=== PATIENT | male | born 2000 | race African-American/Black ===

== ENCOUNTER 2023-04-10 07:30 | Inpatient (IN) | payer MEDICAID, OTHER ==
[~2023-04-10] VITALS: Ht 167.6 cm; Wt 70.5 kg
[2023-04-10] MEDS ORDERED: HALOPERIDOL LACTATE 5 MG/ML VIAL IM ONE ×2 (08:00→21:15)
[2023-04-10] MEDS ORDERED: DiphenhydrAMINE HCL 50 MG/ML VIAL IM ONE ×2 (08:00→21:15)
[2023-04-10] MEDS ORDERED: LORazepam 2 MG/ML VIAL IM ONE ×2 (08:00→21:15)
[2023-04-10 08:12] LABS: BASOPHILS % (AUTO) 0.3 % (0.0-2.0); EOSINOPHILS % (AUTO) 1.2 % (1.0-6.0); HEMOGLOBIN 13.5 g/dL (13.5-17.5); LYMPHOCYTES # (AUTO) 1.8 K/uL (1.0-4.8); LYMPHOCYTES % (AUTO) 37.9 % (22.0-44.0); MEAN CORPUSCULAR HEMOGLOBIN 30.3 pg (26.0-34.0); MEAN CORPUSCULAR HGB CONC 33.8 G/dL (31.0-37.0); MEAN CORPUSCULAR VOLUME 90 fL (80-100); MONOCYTES # (AUTO) 0.4 K/uL (0.1-1.0); MONOCYTES % (AUTO) 9.1 % (2.0-9.0); NEUTROPHILS # (AUTO) 2.5 K/uL (1.8-7.7); NEUTROPHILS % (AUTO) 51.5 % (40.0-70.0); PLATELET COUNT (AUTO) 179 K/uL (150-450); RED BLOOD CELL COUNT(AUTO) 4.46 MIL/uL (4.50-5.90); RED CELL DISTRIBUTION WIDTH 15.3 % (11.5-14.5); WHITE BLOOD COUNT (AUTO) 4.8 K/uL (4.5-11.0)
[2023-04-10 08:21] LABS: ANION GAP 4 mmol/L (8-16); CARBON DIOXIDE 31 mmol/L (22-29); CHLORIDE 102 mmol/L (98-107); CREATININE 0.91 mg/dL (0.60-1.30); GLOMERULAR FILTR. RATE CALC > 60 mL/min (>60); GLUCOSE,RANDOM 92 mg/dL (70-110); POTASSIUM 3.7 mmol/L (3.5-5.1); SODIUM SERUM 137 mmol/L (136-145); UREA NITROGEN, BLOOD 15 mg/dL (7-18)
[2023-04-10] MEDS ORDERED: QUET25TA PO (08:23)
[2023-04-10] MEDS ORDERED: BENZ1TAB84 PO (08:23)
[2023-04-10] MEDS ORDERED: CHLO100T42 PO ×2 (08:23)
[2023-04-10] MEDS ORDERED: ESCI-8 PO (08:26)
[2023-04-10] MEDS ORDERED: ESOM20CA31 PO (08:26)
[2023-04-10 08:27] LABS: ALANINE AMINOTRANSFERASE 24 U/L (12-78); ALBUMIN 3.7 g/dL (3.4-5.0); ALKALINE PHOSPHATASE 99 U/L (46-116); ASPARTATE AMINOTRANSFERASE 26 U/L (15-37); BILIRUBIN,TOTAL 0.4 mg/dL (0.1-1.0); TOTAL PROTEIN, SERUM 7.5 g/dL (6.4-8.2)
[2023-04-10 09:05] LABS: ALCOHOL, BLOOD (SERUM) < 3 mg/dL (0-10)
[2023-04-10 10:49] LABS: COVID AG,FIA SOURCE NASAL SWAB
[2023-04-10 11:12] LABS: SARS-COV2 (COVID) ANTIGEN,FIA Negative (Negative)
[2023-04-10 16:00] VITALS: BP 116/80; PULSE 90
[2023-04-10] MEDS: LORazepam 2 MG TABLET PO PRN (20:06)
[2023-04-10] MEDS: HALOPERIDOL 5 MG TABLET PO PRN (20:06)
[2023-04-10 20:35] VITALS: RESP 18
[2023-04-10] MEDS ORDERED: INFLUENZA VIRUS VACCINE QVS 2023-24 (6MO+)/PF 60 MCG/0.5 ML SYRINGE IM. ONE (22:45)
[2023-04-11] MEDS ORDERED: ONDANSETRON HCL 4 MG TABLET PO PRN (06:00)
[2023-04-11] MEDS ORDERED: ALBUTEROL SULFATE HFA 90 MCG/PUFF 8 GM INHALER IH PRN (06:00)
[2023-04-11] MEDS ORDERED: MAGNESIUM HYDROXIDE SUSPENSION 30 ML UDCUP PO PRN (06:00)
[2023-04-11] MEDS ORDERED: IBUPROFEN 600 MG TABLET PO PRN (06:00)
[2023-04-11] MEDS ORDERED: PETROLATUM,WHITE 28 GM JELLY TP PRN (06:00)
[2023-04-11] MEDS ORDERED: BACITRACIN 28 GM OINTMENT TP PRN (06:00)
[2023-04-11] MEDS ORDERED: MAG HYDROX/ALUMINUM HYD/SIMETH ES 30 ML SUSPENSION UDCUP PO PRN (06:00)
[2023-04-11] MEDS ORDERED: ACETAMINOPHEN 325 MG TABLET PO PRN (06:00)
[2023-04-11] MEDS ORDERED: DOCUSATE SODIUM 100 MG CAPSULE PO PRN (06:00)
[2023-04-11] MEDS ORDERED: BENZOCAINE/MENTHOL LOZENGE PO PRN (06:00)
[2023-04-11] MEDS ORDERED: CloNIDine HCL 0.1 MG TABLET PO PRN (06:00)
[2023-04-11] MEDS ORDERED: OMEPRAZOLE 20 MG CAPSULE PO PRN (06:00)
[2023-04-11] MEDS ORDERED: LOPERAMIDE HCL 2 MG CAPSULE PO PRN (06:00)
[2023-04-11 08:29] VITALS: RESP 19
[2023-04-11] MEDS: HALOPERIDOL 5 MG TABLET PO PRN (09:11)
[2023-04-11] MEDS: LORazepam 2 MG TABLET PO PRN ×2 (09:11→21:35)
[2023-04-11] MEDS: GuanFACINE HCL 1 MG TABLET PO SCH (11:31)
[2023-04-11] MEDS: ChlorproMAZINE HCL 100 MG TABLET PO SCH ×2 (13:48→17:00)
[2023-04-11] MEDS: LITHIUM CARBONATE 300 MG CAPSULE PO SCH ×2 (17:00→18:08)
[2023-04-11] MEDS: ZOLPIDEM TARTRATE 10 MG TABLET PO PRN (21:35)
[2023-04-11 21:37] VITALS: RESP 18
[2023-04-12] MEDS: LORazepam 2 MG TABLET PO PRN ×2 (06:55→22:58)
[2023-04-12] MEDS: ChlorproMAZINE HCL 50 MG TABLET PO PRN ×2 (06:55→09:02)
[2023-04-12] MEDS: GuanFACINE HCL 1 MG TABLET PO SCH (09:01)
[2023-04-12] MEDS: LITHIUM CARBONATE 300 MG CAPSULE PO SCH ×2 (09:01→17:27)
[2023-04-12] MEDS: DIVALPROEX SODIUM 500 MG DR TABLET PO SCH ×2 (09:04→17:27)
[2023-04-12 09:27] VITALS: RESP 19
[2023-04-12] MEDS: ChlorproMAZINE HCL 100 MG TABLET PO SCH ×3 (09:35→17:27)
[2023-04-12 21:20] VITALS: RESP 18
[2023-04-12] MEDS: ZOLPIDEM TARTRATE 10 MG TABLET PO PRN (22:58)
[2023-04-13] MEDS: GuanFACINE HCL 1 MG TABLET PO SCH (08:27)
[2023-04-13] MEDS: DIVALPROEX SODIUM 500 MG DR TABLET PO SCH ×2 (08:27→16:51)
[2023-04-13] MEDS: ChlorproMAZINE HCL 100 MG TABLET PO SCH ×3 (08:28→16:51)
[2023-04-13] MEDS: LITHIUM CARBONATE 300 MG CAPSULE PO SCH ×2 (09:01→16:51)
[2023-04-13 09:13] VITALS: TEMP 97.6
[2023-04-13] MEDS: ChlorproMAZINE HCL 50 MG TABLET PO PRN (16:51)
[2023-04-13 21:03] VITALS: RESP 18
[2023-04-14] MEDS: HALOPERIDOL 5 MG TABLET PO PRN (04:52)
[2023-04-14] MEDS: LORazepam 2 MG TABLET PO PRN ×2 (04:52→17:27)
[2023-04-14] MEDS: ChlorproMAZINE HCL 100 MG TABLET PO SCH ×3 (09:00→17:27)
[2023-04-14] MEDS: DIVALPROEX SODIUM 500 MG DR TABLET PO SCH ×2 (09:00→17:29)
[2023-04-14] MEDS: GuanFACINE HCL 1 MG TABLET PO SCH (09:00)
[2023-04-14] MEDS: LITHIUM CARBONATE 300 MG CAPSULE PO SCH ×2 (09:00→17:27)
[2023-04-14 20:43] VITALS: RESP 18
[2023-04-15] MEDS: GuanFACINE HCL 1 MG TABLET PO SCH (07:51)
[2023-04-15] MEDS: ChlorproMAZINE HCL 100 MG TABLET PO SCH ×3 (07:51→16:45)
[2023-04-15] MEDS: LITHIUM CARBONATE 300 MG CAPSULE PO SCH ×2 (07:53→16:46)
[2023-04-15] MEDS: LORazepam 2 MG TABLET PO PRN ×3 (07:53→14:35)
[2023-04-15] MEDS: DIVALPROEX SODIUM 500 MG DR TABLET PO SCH ×2 (07:53→16:45)
[2023-04-15 20:55] VITALS: RESP 17; TEMP 97.2
[2023-04-16 08:06] VITALS: RESP 18; TEMP 97.5
[2023-04-16] MEDS: ChlorproMAZINE HCL 100 MG TABLET PO SCH ×2 (08:23→13:13)
[2023-04-16] MEDS: GuanFACINE HCL 1 MG TABLET PO SCH (08:23)
[2023-04-16] MEDS: DIVALPROEX SODIUM 500 MG DR TABLET PO SCH (08:24)
[2023-04-16] MEDS: LITHIUM CARBONATE 300 MG CAPSULE PO SCH (08:24)
[2023-04-16] MEDS ORDERED: LITH300C3 PO (10:15)
[2023-04-16] MEDS ORDERED: DIVA-112 PO (10:15)
[2023-04-16] MEDS ORDERED: GUAN1TAB20 PO (10:17)
== END 2023-04-16 16:09 | disposition home or self-care (01) | DRG 753 ==
LOC: EMS 07:31 → 3EC 19:09
PROVIDERS: ADMIT Psychiatry & Neurology Psychiatry; ATTEND Psychiatry & Neurology Psychiatry
DX: F31.9 Bipolar disorder, unspecified (principal); F25.9 Schizoaffective disorder, unspecified; F84.0 Autistic disorder; Z20.822 Contact with and (suspected) exposure to COVID-19; F41.9 Anxiety disorder, unspecified; K59.00 Constipation, unspecified; G47.00 Insomnia, unspecified; Z78.1 Physical restraint status
CPT/HCPCS: 80053; 85025; 99285; G0480; J1200; J1630; J2060

== ENCOUNTER 2023-04-25 04:20 | Inpatient (IN) | payer MEDICAID, OTHER ==
[~2023-04-25] VITALS: Ht 167.6 cm; Wt 68.1 kg
[~2023-04-25 04:20] MED LIST: CHLO100T42 PO; DIVA-112 PO; GUAN1TAB20 PO; LITH300C3 PO
[2023-04-25 05:03] VITALS: BP 116/76
[2023-04-25] MEDS ORDERED: DiphenhydrAMINE HCL 50 MG/ML VIAL IM ONE (05:15)
[2023-04-25] MEDS ORDERED: LORazepam 2 MG/ML VIAL IM ONE (05:15)
[2023-04-25] MEDS ORDERED: HALOPERIDOL LACTATE 5 MG/ML VIAL IM ONE (05:15)
[2023-04-25 06:14] LABS: COVID AG,FIA SOURCE NASAL SWAB
[2023-04-25 06:16] LABS: BASOPHILS % (AUTO) 0.3 % (0.0-2.0); EOSINOPHILS % (AUTO) 0.5 % (1.0-6.0); HEMATOCRIT 37.2 % (41-53); HEMOGLOBIN 12.7 g/dL (13.5-17.5); LYMPHOCYTES % (AUTO) 24.3 % (22.0-44.0); MEAN CORPUSCULAR HEMOGLOBIN 30.5 pg (26.0-34.0); MEAN CORPUSCULAR HGB CONC 34.2 G/dL (31.0-37.0); MEAN CORPUSCULAR VOLUME 89 fL (80-100); MONOCYTES # (AUTO) 0.8 K/uL (0.1-1.0); MONOCYTES % (AUTO) 10.1 % (2.0-9.0); NEUTROPHILS # (AUTO) 5.2 K/uL (1.8-7.7); NEUTROPHILS % (AUTO) 64.8 % (40.0-70.0); PLATELET COUNT (AUTO) 157 K/uL (150-450); RED BLOOD CELL COUNT(AUTO) 4.17 MIL/uL (4.50-5.90); RED CELL DISTRIBUTION WIDTH 15.5 % (11.5-14.5); WHITE BLOOD COUNT (AUTO) 8.1 K/uL (4.5-11.0)
[2023-04-25 06:28] LABS: ANION GAP 3 mmol/L (8-16); CALCIUM, TOTAL 8.8 mg/dL (8.8-10.5); CARBON DIOXIDE 32 mmol/L (22-29); CHLORIDE 103 mmol/L (98-107); CREATININE 0.86 mg/dL (0.60-1.30); GLOMERULAR FILTR. RATE CALC > 60 mL/min (>60); GLUCOSE,RANDOM 90 mg/dL (70-110); POTASSIUM 3.7 mmol/L (3.5-5.1); SODIUM SERUM 138 mmol/L (136-145); UREA NITROGEN, BLOOD 10 mg/dL (7-18)
[2023-04-25 06:30] LABS: ALANINE AMINOTRANSFERASE 26 U/L (12-78); ALBUMIN 3.2 g/dL (3.4-5.0); ALKALINE PHOSPHATASE 90 U/L (46-116); ASPARTATE AMINOTRANSFERASE 45 U/L (15-37); BILIRUBIN,TOTAL 0.2 mg/dL (0.1-1.0); TOTAL PROTEIN, SERUM 7.2 g/dL (6.4-8.2); VALPROIC ACID 55 mcg/mL (50-100)
[2023-04-25 06:52] LABS: LITHIUM 0.37 mmol/L (0.60-1.20)
[2023-04-25 06:56] LABS: ALCOHOL, BLOOD (SERUM) < 3 mg/dL (0-10)
[2023-04-25 07:16] VITALS: TEMP 98.8
[2023-04-25 08:00] LABS: SARS-COV2 (COVID) ANTIGEN,FIA Positive (Negative)
[2023-04-25] MEDS ORDERED: ACETAMINOPHEN 325 MG TABLET PO PRN (08:15)
[2023-04-25] MEDS ORDERED: MAGNESIUM HYDROXIDE SUSPENSION 30 ML UDCUP PO PRN (08:15)
[2023-04-25] MEDS ORDERED: FLUP10TA28 PO (08:30)
[2023-04-25] MEDS ORDERED: DIVA-112 PO (08:30)
[2023-04-25] MEDS ORDERED: FAMO20 PO (08:30)
[2023-04-25] MEDS ORDERED: LEVO125 PO (08:30)
[2023-04-25] MEDS ORDERED: AMLO-257 PO (08:30)
[2023-04-25] MEDS ORDERED: DOCU-412 PO (08:30)
[2023-04-25] MEDS ORDERED: ASPI81TA87 PO (08:30)
[2023-04-25] MEDS ORDERED: METF-1211 PO (08:30)
[2023-04-25] MEDS ORDERED: LORazepam 2 MG/ML VIAL IVP PRN (18:15)
[2023-04-25 19:40] VITALS: PULSE 102
[2023-04-25] MEDS: LORazepam 2 MG/ML VIAL IM PRN (21:38)
[2023-04-26] MEDS: LORazepam 2 MG/ML VIAL IM PRN (09:28)
[2023-04-26 17:50] VITALS: RESP 18
[2023-04-26] MEDS ORDERED: DIVALPROEX SODIUM 500 MG DR TABLET PO SCH (21:00)
[2023-04-26] MEDS ORDERED: FluPHENAZine HCL 10 MG TABLET PO SCH (21:00)
== END 2023-04-26 17:40 | DRG 137 ==
LOC: EMS 04:21 → 6S 14:33
PROVIDERS: ADMIT Internal Medicine; ATTEND Internal Medicine
DX: U07.1 COVID-19 (principal); F31.9 Bipolar disorder, unspecified; H91.3 Deaf nonspeaking, not elsewhere classified; F84.0 Autistic disorder
CPT/HCPCS: 80053; 80164; 80178; 85025; 99285; G0480; J1200; J1630; J2060

== ENCOUNTER 2023-04-26 14:21 | Inpatient (IN) | payer MEDICAID ==
[~2023-04-26] VITALS: Ht 167.6 cm; Wt 68.1 kg
[~2023-04-26 14:21] MED LIST changes: +AMLO-257 PO; +ASPI81TA87 PO; -CHLO100T42 PO; +DOCU-412 PO; +FAMO20 PO; +FLUP10TA28 PO; -GUAN1TAB20 PO; +LEVO125 PO; -LITH300C3 PO; +METF-1211 PO
[2023-04-26] MEDS ORDERED: ZOLPIDEM TARTRATE 10 MG TABLET PO PRN (16:30)
[2023-04-26 18:39] VITALS: RESP 16; TEMP 96
[2023-04-26] MEDS ORDERED: INFLUENZA VIRUS VACCINE QVS 2023-24 (6MO+)/PF 60 MCG/0.5 ML SYRINGE IM. ONE (19:00)
[2023-04-26] MEDS: HALOPERIDOL 5 MG TABLET PO PRN (21:00)
[2023-04-26] MEDS: LORazepam 2 MG TABLET PO PRN (21:00)
[2023-04-26 22:52] VITALS: RESP 18
[2023-04-27 08:29] VITALS: RESP 18
[2023-04-27] MEDS ORDERED: PETROLATUM,WHITE 28 GM JELLY TP PRN (12:15)
[2023-04-27] MEDS ORDERED: ACETAMINOPHEN 325 MG TABLET PO PRN (12:15)
[2023-04-27] MEDS ORDERED: ONDANSETRON HCL 4 MG TABLET PO PRN (12:15)
[2023-04-27] MEDS ORDERED: OMEPRAZOLE 20 MG CAPSULE PO PRN (12:15)
[2023-04-27] MEDS ORDERED: BENZOCAINE/MENTHOL LOZENGE PO PRN (12:15)
[2023-04-27] MEDS ORDERED: MAG HYDROX/ALUMINUM HYD/SIMETH ES 30 ML SUSPENSION UDCUP PO PRN (12:15)
[2023-04-27] MEDS ORDERED: LOPERAMIDE HCL 2 MG CAPSULE PO PRN (12:15)
[2023-04-27] MEDS ORDERED: CloNIDine HCL 0.1 MG TABLET PO PRN (12:15)
[2023-04-27] MEDS ORDERED: BACITRACIN 28 GM OINTMENT TP PRN (12:15)
[2023-04-27] MEDS ORDERED: MAGNESIUM HYDROXIDE SUSPENSION 30 ML UDCUP PO PRN (12:15)
[2023-04-27] MEDS ORDERED: DOCUSATE SODIUM 100 MG CAPSULE PO PRN (12:15)
[2023-04-27] MEDS ORDERED: IBUPROFEN 600 MG TABLET PO PRN (12:15)
[2023-04-27] MEDS ORDERED: ALBUTEROL SULFATE HFA 90 MCG/PUFF 8 GM INHALER IH PRN (12:15)
[2023-04-27] MEDS: LORazepam 2 MG TABLET PO PRN (14:09)
[2023-04-27] MEDS: HALOPERIDOL 5 MG TABLET PO PRN (14:09)
[2023-04-27] MEDS: FAMOTIDINE 20 MG TABLET PO SCH (16:28)
[2023-04-27] MEDS: DIVALPROEX SODIUM 500 MG DR TABLET PO SCH (16:28)
[2023-04-27] MEDS ORDERED: FluPHENAZine HCL 10 MG TABLET PO SCH (21:00)
[2023-04-27] MEDS: FluPHENAZine HCL 5 MG TABLET PO SCH (21:39)
[2023-04-27 23:59] VITALS: RESP 18
[2023-04-28] MEDS: LEVOTHYROXINE SODIUM 125 MCG TABLET PO SCH (06:27)
[2023-04-28 08:16] LABS: COVID AG,FIA SOURCE NASAL SWAB
[2023-04-28 08:59] LABS: SARS-COV2 (COVID) ANTIGEN,FIA Negative (Negative)
[2023-04-28] MEDS: FAMOTIDINE 20 MG TABLET PO SCH ×2 (09:29→16:11)
[2023-04-28] MEDS: CHOLECALCIFEROL (VIT D3) 1,000 UNITS [25 MCG] TABLET PO SCH (09:29)
[2023-04-28] MEDS: DIVALPROEX SODIUM 500 MG DR TABLET PO SCH ×2 (09:29→16:11)
[2023-04-28] MEDS: AmLODIPine BESYLATE 5 MG TABLET PO SCH (09:30)
[2023-04-28] MEDS: LORazepam 2 MG TABLET PO PRN (09:55)
[2023-04-28 16:00] VITALS: RESP 18
[2023-04-28] MEDS: ESOMEPRAZOLE MAG TRIHYDRATE 20 MG CAPSULE PO SCH (16:11)
[2023-04-28] MEDS: FluPHENAZine HCL 5 MG TABLET PO SCH (22:19)
[2023-04-29 01:00] VITALS: RESP 19; TEMP 97.8
[2023-04-29] MEDS: LEVOTHYROXINE SODIUM 125 MCG TABLET PO SCH (06:30)
[2023-04-29] MEDS: ESOMEPRAZOLE MAG TRIHYDRATE 20 MG CAPSULE PO SCH ×2 (06:58→17:38)
[2023-04-29] MEDS: DIVALPROEX SODIUM 500 MG DR TABLET PO SCH ×2 (10:19→17:39)
[2023-04-29] MEDS: FAMOTIDINE 20 MG TABLET PO SCH ×2 (10:19→17:39)
[2023-04-29] MEDS: AmLODIPine BESYLATE 5 MG TABLET PO SCH (10:19)
[2023-04-29] MEDS: CHOLECALCIFEROL (VIT D3) 1,000 UNITS [25 MCG] TABLET PO SCH (10:19)
[2023-04-29 16:45] VITALS: BP 120/70; PULSE 85; RESP 18; TEMP 98
[2023-04-29 20:38] VITALS: RESP 18
[2023-04-29] MEDS: FluPHENAZine HCL 5 MG TABLET PO SCH (21:10)
[2023-04-30] MEDS: LEVOTHYROXINE SODIUM 125 MCG TABLET PO SCH (06:47)
[2023-04-30] MEDS: ESOMEPRAZOLE MAG TRIHYDRATE 20 MG CAPSULE PO SCH ×2 (06:48→17:52)
[2023-04-30] MEDS: AmLODIPine BESYLATE 5 MG TABLET PO SCH (07:54)
[2023-04-30] MEDS: LORazepam 2 MG TABLET PO PRN ×2 (07:54→20:59)
[2023-04-30] MEDS: HALOPERIDOL 5 MG TABLET PO PRN ×2 (07:54→20:59)
[2023-04-30] MEDS: CHOLECALCIFEROL (VIT D3) 1,000 UNITS [25 MCG] TABLET PO SCH (07:54)
[2023-04-30] MEDS: DIVALPROEX SODIUM 500 MG DR TABLET PO SCH ×2 (07:54→17:52)
[2023-04-30] MEDS: FAMOTIDINE 20 MG TABLET PO SCH ×2 (07:54→17:52)
[2023-04-30 08:38] VITALS: RESP 18
[2023-04-30] MEDS: ChlorproMAZINE HCL 50 MG TABLET PO SCH (17:52)
[2023-04-30] MEDS: TraZODone HCL 50 MG TABLET PO SCH (17:52)
[2023-04-30] MEDS: FluPHENAZine HCL 5 MG TABLET PO SCH (20:59)
[2023-04-30 22:03] VITALS: RESP 18; TEMP 98.1
[2023-05-01] MEDS: ESOMEPRAZOLE MAG TRIHYDRATE 20 MG CAPSULE PO SCH ×2 (06:55→17:00)
[2023-05-01] MEDS: LEVOTHYROXINE SODIUM 125 MCG TABLET PO SCH (06:55)
[2023-05-01] MEDS: CHOLECALCIFEROL (VIT D3) 1,000 UNITS [25 MCG] TABLET PO SCH (08:03)
[2023-05-01] MEDS: TraZODone HCL 50 MG TABLET PO SCH ×2 (08:03→17:00)
[2023-05-01] MEDS: DIVALPROEX SODIUM 500 MG DR TABLET PO SCH ×2 (08:03→17:00)
[2023-05-01] MEDS: AmLODIPine BESYLATE 5 MG TABLET PO SCH (08:03)
[2023-05-01] MEDS: FAMOTIDINE 20 MG TABLET PO SCH ×2 (08:03→17:00)
[2023-05-01] MEDS: HALOPERIDOL 5 MG TABLET PO PRN (08:03)
[2023-05-01] MEDS: LORazepam 2 MG TABLET PO PRN (08:03)
[2023-05-01] MEDS: ChlorproMAZINE HCL 50 MG TABLET PO SCH ×3 (08:04→17:00)
[2023-05-01 08:18] VITALS: RESP 18
[2023-05-01] MEDS ORDERED: CHLO50TA61 PO (12:11)
[2023-05-01] MEDS ORDERED: TRAZ-252 PO (12:11)
[2023-05-01] MEDS ORDERED: ESOM20CA31 PO (12:47)
[2023-05-01] MEDS ORDERED: CHOL25TA4 PO (12:54)
== END 2023-05-01 16:00 | disposition home or self-care (01) | DRG 750 ==
LOC: 3EI 17:20 → 3EC 04-28 17:15
PROVIDERS: ADMIT Psychiatry & Neurology Psychiatry; ATTEND Psychiatry & Neurology Psychiatry
DX: F25.9 Schizoaffective disorder, unspecified (principal); F79 Unspecified intellectual disabilities; E03.9 Hypothyroidism, unspecified; E66.9 Obesity, unspecified; E78.5 Hyperlipidemia, unspecified; F84.0 Autistic disorder; I10 Essential (primary) hypertension; K21.9 Gastro-esophageal reflux disease without esophagitis; K59.00 Constipation, unspecified; Z68.24 Body mass index [BMI] 24.0-24.9, adult; Z79.82 Long term (current) use of aspirin; Z79.899 Other long term (current) drug therapy; Z79.84 Long term (current) use of oral hypoglycemic drugs
CPT/HCPCS: 87081; Z7610

== ENCOUNTER 2023-05-05 18:04 | Inpatient (IN) | payer MEDICAID, OTHER ==
[~2023-05-05] VITALS: Ht 167.6 cm; Wt 67.2 kg
[~2023-05-05 18:04] MED LIST changes: -ASPI81TA87 PO; +CHLO50TA61 PO; +CHOL25TA4 PO; -DOCU-412 PO; +ESOM20CA31 PO; -METF-1211 PO; +TRAZ-252 PO
[2023-05-05 21:17] LABS: COVID AG,FIA SOURCE NASAL SWAB
[2023-05-05 21:39] LABS: SARS-COV2 (COVID) ANTIGEN,FIA Negative (Negative)
[2023-05-05 21:51] LABS: BASOPHILS % (AUTO) 0.5 % (0.0-2.0); EOSINOPHILS % (AUTO) 0.8 % (1.0-6.0); HEMATOCRIT 36.3 % (41-53); HEMOGLOBIN 12.2 g/dL (13.5-17.5); LYMPHOCYTES # (AUTO) 2.8 K/uL (1.0-4.8); LYMPHOCYTES % (AUTO) 42.3 % (22.0-44.0); MEAN CORPUSCULAR HEMOGLOBIN 30.1 pg (26.0-34.0); MEAN CORPUSCULAR HGB CONC 33.7 G/dL (31.0-37.0); MEAN CORPUSCULAR VOLUME 89 fL (80-100); MONOCYTES # (AUTO) 0.7 K/uL (0.1-1.0); MONOCYTES % (AUTO) 10.1 % (2.0-9.0); NEUTROPHILS # (AUTO) 3.1 K/uL (1.8-7.7); NEUTROPHILS % (AUTO) 46.3 % (40.0-70.0); PLATELET COUNT (AUTO) 243 K/uL (150-450); RED BLOOD CELL COUNT(AUTO) 4.06 MIL/uL (4.50-5.90); WHITE BLOOD COUNT (AUTO) 6.7 K/uL (4.5-11.0)
[2023-05-05 21:58] LABS: ANION GAP 3 mmol/L (8-16); CALCIUM, TOTAL 8.6 mg/dL (8.8-10.5); CARBON DIOXIDE 32 mmol/L (22-29); CHLORIDE 103 mmol/L (98-107); CREATININE 0.71 mg/dL (0.60-1.30); GLOMERULAR FILTR. RATE CALC > 60 mL/min (>60); GLUCOSE,RANDOM 132 mg/dL (70-110); POTASSIUM 3.6 mmol/L (3.5-5.1); SODIUM SERUM 138 mmol/L (136-145); UREA NITROGEN, BLOOD 14 mg/dL (7-18)
[2023-05-05 22:04] LABS: ALANINE AMINOTRANSFERASE 15 U/L (12-78); ALBUMIN 3.1 g/dL (3.4-5.0); ALKALINE PHOSPHATASE 84 U/L (46-116); ASPARTATE AMINOTRANSFERASE 12 U/L (15-37); BILIRUBIN,TOTAL 0.1 mg/dL (0.1-1.0); TOTAL PROTEIN, SERUM 6.5 g/dL (6.4-8.2)
[2023-05-05 22:08] LABS: ALCOHOL, BLOOD (SERUM) < 3 mg/dL (0-10)
[2023-05-06] MEDS ORDERED: DiphenhydrAMINE HCL 50 MG/ML VIAL IM ONE (06:30)
[2023-05-06] MEDS ORDERED: LORazepam 2 MG/ML VIAL IM ONE (06:30)
[2023-05-06] MEDS ORDERED: HALOPERIDOL LACTATE 5 MG/ML VIAL IM ONE (06:30)
[2023-05-07] MEDS: LORazepam 1 MG TABLET PO PRN (08:00)
[2023-05-07] MEDS: HALOPERIDOL 5 MG TABLET PO PRN (08:00)
[2023-05-08 02:00] VITALS: BP 142/83; PULSE 77; RESP 18; TEMP 97.6; O2SAT 98
[2023-05-08] MEDS: ZOLPIDEM TARTRATE 10 MG TABLET PO PRN (02:02)
[2023-05-08] MEDS: LORazepam 1 MG TABLET PO PRN ×2 (05:01→12:32)
[2023-05-08] MEDS: HALOPERIDOL 5 MG TABLET PO PRN ×2 (05:02→12:32)
[2023-05-08] MEDS ORDERED: INFLUENZA VIRUS VACCINE QVS 2023-24 (6MO+)/PF 60 MCG/0.5 ML SYRINGE IM. ONE (06:30)
[2023-05-08 08:21] VITALS: BP 123/67; PULSE 95; RESP 18; TEMP 98.1; O2SAT 97
[2023-05-08] MEDS: ChlorproMAZINE HCL 50 MG TABLET PO SCH ×2 (13:00→17:42)
[2023-05-08] MEDS ORDERED: MAG HYDROX/ALUMINUM HYD/SIMETH ES 30 ML SUSPENSION UDCUP PO PRN (15:00)
[2023-05-08] MEDS ORDERED: CloNIDine HCL 0.1 MG TABLET PO PRN (15:00)
[2023-05-08] MEDS ORDERED: DOCUSATE SODIUM 100 MG CAPSULE PO PRN (15:00)
[2023-05-08] MEDS ORDERED: LOPERAMIDE HCL 2 MG CAPSULE PO PRN (15:00)
[2023-05-08] MEDS ORDERED: ALBUTEROL SULFATE HFA 90 MCG/PUFF 8 GM INHALER IH PRN (15:00)
[2023-05-08] MEDS ORDERED: ONDANSETRON HCL 4 MG TABLET PO PRN (15:00)
[2023-05-08] MEDS ORDERED: OMEPRAZOLE 20 MG CAPSULE PO PRN (15:00)
[2023-05-08] MEDS ORDERED: IBUPROFEN 600 MG TABLET PO PRN (15:00)
[2023-05-08] MEDS ORDERED: BACITRACIN 28 GM OINTMENT TP PRN (15:00)
[2023-05-08] MEDS ORDERED: MAGNESIUM HYDROXIDE SUSPENSION 30 ML UDCUP PO PRN (15:00)
[2023-05-08] MEDS ORDERED: PETROLATUM,WHITE 28 GM JELLY TP PRN (15:00)
[2023-05-08] MEDS ORDERED: ACETAMINOPHEN 325 MG TABLET PO PRN (15:00)
[2023-05-08] MEDS ORDERED: BENZOCAINE/MENTHOL LOZENGE PO PRN (15:00)
[2023-05-08] MEDS ORDERED: FAMOTIDINE 20 MG TABLET PO SCH (17:00)
[2023-05-08] MEDS: TraZODone HCL 50 MG TABLET PO SCH (17:43)
[2023-05-08] MEDS: DIVALPROEX SODIUM 500 MG DR TABLET PO SCH (17:43)
[2023-05-09 05:00] VITALS: BP 129/84; PULSE 94; RESP 18; TEMP 97.9
[2023-05-09] MEDS: HALOPERIDOL 5 MG TABLET PO PRN ×2 (05:23→16:16)
[2023-05-09] MEDS: LORazepam 1 MG TABLET PO PRN ×3 (05:23→16:17)
[2023-05-09] MEDS: ESOMEPRAZOLE MAG TRIHYDRATE 20 MG CAPSULE PO SCH ×2 (06:31→16:17)
[2023-05-09] MEDS: LEVOTHYROXINE SODIUM 125 MCG TABLET PO SCH (06:31)
[2023-05-09] MEDS: TraZODone HCL 50 MG TABLET PO SCH ×2 (08:25→16:16)
[2023-05-09] MEDS: ChlorproMAZINE HCL 50 MG TABLET PO SCH ×2 (08:25→13:20)
[2023-05-09] MEDS: CHOLECALCIFEROL (VIT D3) 1,000 UNITS [25 MCG] TABLET PO SCH (08:25)
[2023-05-09] MEDS: DIVALPROEX SODIUM 500 MG DR TABLET PO SCH ×2 (08:25→16:17)
[2023-05-09] MEDS: ChlorproMAZINE HCL 50 MG TABLET PO PRN (08:27)
[2023-05-09] MEDS: AmLODIPine BESYLATE 5 MG TABLET PO SCH (08:28)
[2023-05-09] MEDS: ChlorproMAZINE HCL 100 MG TABLET PO SCH (16:16)
[2023-05-09 22:32] VITALS: BP 118/72; PULSE 85; RESP 16; TEMP 97.5
[2023-05-10] MEDS: ESOMEPRAZOLE MAG TRIHYDRATE 20 MG CAPSULE PO SCH ×2 (06:32→16:53)
[2023-05-10] MEDS: LEVOTHYROXINE SODIUM 125 MCG TABLET PO SCH (06:32)
[2023-05-10 08:04] VITALS: BP 120/81; PULSE 82; RESP 17; TEMP 98; O2SAT 98
[2023-05-10] MEDS: AmLODIPine BESYLATE 5 MG TABLET PO SCH (08:07)
[2023-05-10] MEDS: ChlorproMAZINE HCL 100 MG TABLET PO SCH ×3 (08:07→16:53)
[2023-05-10] MEDS: CHOLECALCIFEROL (VIT D3) 1,000 UNITS [25 MCG] TABLET PO SCH (08:07)
[2023-05-10] MEDS: DIVALPROEX SODIUM 500 MG DR TABLET PO SCH ×2 (08:08→16:54)
[2023-05-10] MEDS: LORazepam 1 MG TABLET PO PRN ×2 (08:08→16:55)
[2023-05-10] MEDS: TraZODone HCL 50 MG TABLET PO SCH ×2 (08:08→16:54)
[2023-05-10] MEDS: HALOPERIDOL 5 MG TABLET PO PRN (16:55)
[2023-05-11 03:14] VITALS: RESP 18; TEMP 97.9
[2023-05-11] MEDS: LEVOTHYROXINE SODIUM 125 MCG TABLET PO SCH (06:24)
[2023-05-11] MEDS: ESOMEPRAZOLE MAG TRIHYDRATE 20 MG CAPSULE PO SCH ×2 (06:24→16:55)
[2023-05-11] MEDS: LORazepam 1 MG TABLET PO PRN ×3 (06:24→16:55)
[2023-05-11] MEDS: ChlorproMAZINE HCL 50 MG TABLET PO PRN ×3 (06:24→16:54)
[2023-05-11 08:09] VITALS: BP 115/76; PULSE 98; RESP 18; TEMP 98.1; O2SAT 96
[2023-05-11] MEDS: ChlorproMAZINE HCL 100 MG TABLET PO SCH ×3 (08:26→16:54)
[2023-05-11] MEDS: TraZODone HCL 50 MG TABLET PO SCH ×2 (08:26→16:55)
[2023-05-11] MEDS: CHOLECALCIFEROL (VIT D3) 1,000 UNITS [25 MCG] TABLET PO SCH (08:26)
[2023-05-11] MEDS: AmLODIPine BESYLATE 5 MG TABLET PO SCH (08:27)
[2023-05-11] MEDS: DIVALPROEX SODIUM 500 MG DR TABLET PO SCH ×2 (08:27→16:54)
[2023-05-11] MEDS: HALOPERIDOL 5 MG TABLET PO PRN ×2 (11:41→16:54)
[2023-05-11 20:00] VITALS: BP 116/70; PULSE 82; RESP 18; TEMP 97.9; O2SAT 97
[2023-05-12] MEDS: ESOMEPRAZOLE MAG TRIHYDRATE 20 MG CAPSULE PO SCH ×2 (06:28→16:13)
[2023-05-12] MEDS: LEVOTHYROXINE SODIUM 125 MCG TABLET PO SCH (06:28)
[2023-05-12] MEDS: ChlorproMAZINE HCL 100 MG TABLET PO SCH ×3 (08:24→16:13)
[2023-05-12] MEDS: DIVALPROEX SODIUM 500 MG DR TABLET PO SCH ×2 (08:24→16:13)
[2023-05-12] MEDS: AmLODIPine BESYLATE 5 MG TABLET PO SCH (08:24)
[2023-05-12] MEDS: TraZODone HCL 50 MG TABLET PO SCH ×2 (08:24→16:13)
[2023-05-12] MEDS: HALOPERIDOL 5 MG TABLET PO PRN (08:25)
[2023-05-12] MEDS: LORazepam 1 MG TABLET PO PRN (08:25)
[2023-05-12] MEDS: CHOLECALCIFEROL (VIT D3) 1,000 UNITS [25 MCG] TABLET PO SCH (08:26)
[2023-05-12 09:39] VITALS: BP 108/67; PULSE 80; RESP 18; TEMP 97.8; O2SAT 97
[2023-05-13 00:44] VITALS: RESP 18
[2023-05-13] MEDS: LORazepam 1 MG TABLET PO PRN ×4 (05:50→16:48)
[2023-05-13] MEDS: ChlorproMAZINE HCL 50 MG TABLET PO PRN ×2 (05:50→16:48)
[2023-05-13] MEDS: LEVOTHYROXINE SODIUM 125 MCG TABLET PO SCH (05:51)
[2023-05-13] MEDS: ESOMEPRAZOLE MAG TRIHYDRATE 20 MG CAPSULE PO SCH ×2 (05:52→16:47)
[2023-05-13] MEDS: HALOPERIDOL 5 MG TABLET PO PRN ×3 (07:31→16:48)
[2023-05-13] MEDS: AmLODIPine BESYLATE 5 MG TABLET PO SCH (08:07)
[2023-05-13] MEDS: ChlorproMAZINE HCL 100 MG TABLET PO SCH ×3 (08:07→16:48)
[2023-05-13] MEDS: DIVALPROEX SODIUM 500 MG DR TABLET PO SCH ×2 (08:07→16:48)
[2023-05-13] MEDS: TraZODone HCL 50 MG TABLET PO SCH ×2 (08:07→16:48)
[2023-05-13] MEDS: CHOLECALCIFEROL (VIT D3) 1,000 UNITS [25 MCG] TABLET PO SCH (08:07)
[2023-05-13 08:19] VITALS: BP 127/64; PULSE 60; RESP 18; TEMP 97.7; O2SAT 95
[2023-05-13 22:41] VITALS: RESP 18; TEMP 98.2
[2023-05-14] MEDS: ChlorproMAZINE HCL 50 MG TABLET PO PRN ×3 (01:04→17:04)
[2023-05-14] MEDS: LORazepam 1 MG TABLET PO PRN ×4 (01:04→17:04)
[2023-05-14] MEDS: ZOLPIDEM TARTRATE 10 MG TABLET PO PRN (01:04)
[2023-05-14] MEDS: HALOPERIDOL 5 MG TABLET PO PRN ×2 (05:51→17:04)
[2023-05-14] MEDS: LEVOTHYROXINE SODIUM 125 MCG TABLET PO SCH (06:28)
[2023-05-14] MEDS: ESOMEPRAZOLE MAG TRIHYDRATE 20 MG CAPSULE PO SCH ×2 (06:28→17:04)
[2023-05-14] MEDS: TraZODone HCL 50 MG TABLET PO SCH ×2 (08:26→17:04)
[2023-05-14] MEDS: CHOLECALCIFEROL (VIT D3) 1,000 UNITS [25 MCG] TABLET PO SCH (08:26)
[2023-05-14] MEDS: DIVALPROEX SODIUM 500 MG DR TABLET PO SCH ×2 (08:26→17:04)
[2023-05-14] MEDS: ChlorproMAZINE HCL 100 MG TABLET PO SCH ×3 (08:26→17:04)
[2023-05-14] MEDS: AmLODIPine BESYLATE 5 MG TABLET PO SCH (08:26)
[2023-05-14 20:08] VITALS: BP 102/62; PULSE 91; RESP 16; TEMP 97.8; O2SAT 100
[2023-05-15] MEDS: LEVOTHYROXINE SODIUM 125 MCG TABLET PO SCH (06:22)
[2023-05-15] MEDS: ESOMEPRAZOLE MAG TRIHYDRATE 20 MG CAPSULE PO SCH ×2 (06:24→16:52)
[2023-05-15 08:17] VITALS: BP 110/68; PULSE 88; RESP 17; TEMP 98; O2SAT 98
[2023-05-15] MEDS: DIVALPROEX SODIUM 500 MG DR TABLET PO SCH ×2 (08:18→16:52)
[2023-05-15] MEDS: LORazepam 1 MG TABLET PO PRN ×3 (08:18→16:52)
[2023-05-15] MEDS: AmLODIPine BESYLATE 5 MG TABLET PO SCH (08:18)
[2023-05-15] MEDS: TraZODone HCL 50 MG TABLET PO SCH ×2 (08:18→16:52)
[2023-05-15] MEDS: ChlorproMAZINE HCL 100 MG TABLET PO SCH ×3 (08:18→16:52)
[2023-05-15] MEDS: CHOLECALCIFEROL (VIT D3) 1,000 UNITS [25 MCG] TABLET PO SCH (08:18)
[2023-05-15] MEDS: HALOPERIDOL 5 MG TABLET PO PRN ×2 (08:18→12:25)
[2023-05-15 08:39] VITALS: BP 136/65; PULSE 92; RESP 18; TEMP 97.7; O2SAT 98
[2023-05-15 23:06] VITALS: BP 106/56; PULSE 82; RESP 16; TEMP 97.6; O2SAT 96
[2023-05-16] MEDS: LEVOTHYROXINE SODIUM 125 MCG TABLET PO SCH (06:29)
[2023-05-16] MEDS: ESOMEPRAZOLE MAG TRIHYDRATE 20 MG CAPSULE PO SCH ×2 (06:31→17:03)
[2023-05-16] MEDS: DIVALPROEX SODIUM 500 MG DR TABLET PO SCH ×2 (08:31→17:03)
[2023-05-16] MEDS: ChlorproMAZINE HCL 100 MG TABLET PO SCH ×3 (08:31→17:04)
[2023-05-16] MEDS: CHOLECALCIFEROL (VIT D3) 1,000 UNITS [25 MCG] TABLET PO SCH (08:31)
[2023-05-16] MEDS: TraZODone HCL 50 MG TABLET PO SCH ×2 (08:31→17:04)
[2023-05-16] MEDS: AmLODIPine BESYLATE 5 MG TABLET PO SCH (08:31)
[2023-05-16] MEDS: HALOPERIDOL 5 MG TABLET PO PRN ×2 (13:57→18:19)
[2023-05-16] MEDS: LORazepam 1 MG TABLET PO PRN ×2 (13:58→18:19)
[2023-05-16] MEDS: ChlorproMAZINE HCL 50 MG TABLET PO PRN (17:04)
[2023-05-16 20:38] VITALS: BP 121/72; PULSE 91; RESP 18; TEMP 98.1
[2023-05-17] MEDS: HALOPERIDOL 5 MG TABLET PO PRN ×2 (03:00→08:25)
[2023-05-17] MEDS: ChlorproMAZINE HCL 50 MG TABLET PO PRN ×2 (03:00→08:26)
[2023-05-17] MEDS: ESOMEPRAZOLE MAG TRIHYDRATE 20 MG CAPSULE PO SCH ×2 (06:30→16:48)
[2023-05-17] MEDS: LEVOTHYROXINE SODIUM 125 MCG TABLET PO SCH (06:30)
[2023-05-17] MEDS: AmLODIPine BESYLATE 5 MG TABLET PO SCH (08:25)
[2023-05-17] MEDS: DIVALPROEX SODIUM 500 MG DR TABLET PO SCH ×2 (08:25→16:48)
[2023-05-17] MEDS: ChlorproMAZINE HCL 100 MG TABLET PO SCH ×3 (08:26→16:48)
[2023-05-17] MEDS: TraZODone HCL 50 MG TABLET PO SCH ×2 (08:26→16:48)
[2023-05-17] MEDS: CHOLECALCIFEROL (VIT D3) 1,000 UNITS [25 MCG] TABLET PO SCH (08:26)
[2023-05-17] MEDS: LORazepam 1 MG TABLET PO PRN (08:26)
[2023-05-17 08:27] VITALS: BP 128/71; PULSE 88; RESP 17; TEMP 98; O2SAT 98
[2023-05-17 20:09] VITALS: BP 120/70; PULSE 90; RESP 18; TEMP 97.9
[2023-05-18] MEDS: LEVOTHYROXINE SODIUM 125 MCG TABLET PO SCH (06:45)
[2023-05-18] MEDS: ESOMEPRAZOLE MAG TRIHYDRATE 20 MG CAPSULE PO SCH ×2 (06:46→16:06)
[2023-05-18 08:22] VITALS: RESP 18
[2023-05-18] MEDS: LORazepam 1 MG TABLET PO PRN (08:26)
[2023-05-18] MEDS: DIVALPROEX SODIUM 500 MG DR TABLET PO SCH ×2 (08:26→16:06)
[2023-05-18] MEDS: AmLODIPine BESYLATE 5 MG TABLET PO SCH (08:26)
[2023-05-18] MEDS: TraZODone HCL 50 MG TABLET PO SCH ×2 (08:26→16:06)
[2023-05-18] MEDS: ChlorproMAZINE HCL 100 MG TABLET PO SCH ×3 (08:26→16:06)
[2023-05-18] MEDS: CHOLECALCIFEROL (VIT D3) 1,000 UNITS [25 MCG] TABLET PO SCH (09:29)
[2023-05-18 23:07] VITALS: BP 102/58; PULSE 78; RESP 18; TEMP 98; O2SAT 98
[2023-05-19] MEDS: ESOMEPRAZOLE MAG TRIHYDRATE 20 MG CAPSULE PO SCH ×2 (07:01→16:13)
[2023-05-19] MEDS: HALOPERIDOL 5 MG TABLET PO PRN (07:01)
[2023-05-19] MEDS: LEVOTHYROXINE SODIUM 125 MCG TABLET PO SCH (07:01)
[2023-05-19] MEDS: ChlorproMAZINE HCL 50 MG TABLET PO PRN (07:02)
[2023-05-19] MEDS: AmLODIPine BESYLATE 5 MG TABLET PO SCH (08:12)
[2023-05-19] MEDS: DIVALPROEX SODIUM 500 MG DR TABLET PO SCH ×2 (08:12→16:13)
[2023-05-19] MEDS: TraZODone HCL 50 MG TABLET PO SCH ×2 (08:12→16:13)
[2023-05-19] MEDS: CHOLECALCIFEROL (VIT D3) 1,000 UNITS [25 MCG] TABLET PO SCH (08:12)
[2023-05-19] MEDS: ChlorproMAZINE HCL 100 MG TABLET PO SCH ×3 (08:12→16:13)
[2023-05-19 08:28] VITALS: BP 104/63; PULSE 100; RESP 18; TEMP 97.8; O2SAT 96
[2023-05-19] MEDS: LORazepam 1 MG TABLET PO PRN (16:13)
[2023-05-19 20:15] VITALS: BP 110/64; PULSE 98; RESP 20; TEMP 97.8; O2SAT 97
[2023-05-20] MEDS: ESOMEPRAZOLE MAG TRIHYDRATE 20 MG CAPSULE PO SCH ×2 (06:41→18:50)
[2023-05-20] MEDS: HALOPERIDOL 5 MG TABLET PO PRN ×2 (06:41→20:18)
[2023-05-20] MEDS: ChlorproMAZINE HCL 50 MG TABLET PO PRN ×2 (06:41→20:18)
[2023-05-20] MEDS: LEVOTHYROXINE SODIUM 125 MCG TABLET PO SCH (06:41)
[2023-05-20] MEDS: LORazepam 1 MG TABLET PO PRN ×2 (08:54→20:18)
[2023-05-20] MEDS: CHOLECALCIFEROL (VIT D3) 1,000 UNITS [25 MCG] TABLET PO SCH (08:55)
[2023-05-20] MEDS: ChlorproMAZINE HCL 100 MG TABLET PO SCH ×3 (08:55→18:49)
[2023-05-20] MEDS: DIVALPROEX SODIUM 500 MG DR TABLET PO SCH ×2 (08:55→18:50)
[2023-05-20] MEDS: AmLODIPine BESYLATE 5 MG TABLET PO SCH (08:55)
[2023-05-20] MEDS: TraZODone HCL 50 MG TABLET PO SCH ×2 (08:55→18:50)
[2023-05-20 09:50] VITALS: BP 101/72; PULSE 97; RESP 20; TEMP 97.1; O2SAT 99
[2023-05-20 20:15] VITALS: BP 124/70; PULSE 96; RESP 18; TEMP 97.9; O2SAT 98
[2023-05-20] MEDS: ZOLPIDEM TARTRATE 10 MG TABLET PO PRN (21:58)
[2023-05-21] MEDS: ChlorproMAZINE HCL 50 MG TABLET PO PRN (05:10)
[2023-05-21] MEDS: HALOPERIDOL 5 MG TABLET PO PRN ×2 (05:10→14:00)
[2023-05-21] MEDS: LEVOTHYROXINE SODIUM 125 MCG TABLET PO SCH (06:04)
[2023-05-21] MEDS: ESOMEPRAZOLE MAG TRIHYDRATE 20 MG CAPSULE PO SCH ×2 (06:04→16:38)
[2023-05-21 08:00] VITALS: BP 120/82; PULSE 88; RESP 17; TEMP 98; O2SAT 98
[2023-05-21] MEDS: AmLODIPine BESYLATE 5 MG TABLET PO SCH (09:58)
[2023-05-21] MEDS: CHOLECALCIFEROL (VIT D3) 1,000 UNITS [25 MCG] TABLET PO SCH (09:58)
[2023-05-21] MEDS: TraZODone HCL 50 MG TABLET PO SCH ×2 (09:58→16:38)
[2023-05-21] MEDS: DIVALPROEX SODIUM 500 MG DR TABLET PO SCH ×2 (09:58→16:38)
[2023-05-21] MEDS: ChlorproMAZINE HCL 100 MG TABLET PO SCH ×3 (09:58→16:39)
[2023-05-21] MEDS: LORazepam 1 MG TABLET PO PRN (14:00)
[2023-05-21] MEDS ORDERED: DiphenhydrAMINE HCL 50 MG/ML VIAL IM ONE (14:45)
[2023-05-21] MEDS ORDERED: ChlorproMAZINE HCL 50 MG/2 ML AMP IM ONE (14:45)
[2023-05-21] MEDS ORDERED: LORazepam 2 MG/ML VIAL IM ONE (14:45)
[2023-05-21] MEDS ORDERED: ChlorproMAZINE HCL 50 MG/2 ML AMP ONE (14:47)
[2023-05-21] MEDS ORDERED: LORazepam 2 MG/ML VIAL ONE (14:48)
[2023-05-21] MEDS ORDERED: DiphenhydrAMINE HCL 50 MG/ML VIAL ONE (14:49)
[2023-05-21 16:04] VITALS: BP 118/70; PULSE 91; RESP 16; TEMP 98; O2SAT 99
[2023-05-21] MEDS: GuanFACINE HCL 1 MG TABLET PO SCH (16:56)
[2023-05-21 22:55] VITALS: BP 108/68; PULSE 82; RESP 18; TEMP 97.5; O2SAT 99
[2023-05-22] MEDS: ESOMEPRAZOLE MAG TRIHYDRATE 20 MG CAPSULE PO SCH ×2 (06:32→16:38)
[2023-05-22] MEDS: LEVOTHYROXINE SODIUM 125 MCG TABLET PO SCH (06:32)
[2023-05-22] MEDS: GuanFACINE HCL 1 MG TABLET PO SCH ×2 (08:32→17:16)
[2023-05-22] MEDS: TraZODone HCL 50 MG TABLET PO SCH ×2 (08:32→17:16)
[2023-05-22] MEDS: ChlorproMAZINE HCL 100 MG TABLET PO SCH ×3 (08:32→17:15)
[2023-05-22] MEDS: AmLODIPine BESYLATE 5 MG TABLET PO SCH (08:32)
[2023-05-22] MEDS: ChlorproMAZINE HCL 50 MG TABLET PO PRN (08:32)
[2023-05-22] MEDS: DIVALPROEX SODIUM 500 MG DR TABLET PO SCH ×3 (08:33→17:15)
[2023-05-22] MEDS: CHOLECALCIFEROL (VIT D3) 1,000 UNITS [25 MCG] TABLET PO SCH (08:33)
[2023-05-22] MEDS: HALOPERIDOL 5 MG TABLET PO PRN ×2 (08:33→19:51)
[2023-05-22] MEDS: LORazepam 1 MG TABLET PO PRN ×2 (08:33→19:51)
[2023-05-22 14:11] VITALS: BP 113/72; PULSE 100; RESP 18; TEMP 97.6; O2SAT 98
[2023-05-23 00:35] VITALS: BP 106/62; PULSE 78; RESP 16; TEMP 98; O2SAT 97
[2023-05-23] MEDS: ESOMEPRAZOLE MAG TRIHYDRATE 20 MG CAPSULE PO SCH ×2 (06:28→16:50)
[2023-05-23] MEDS: LEVOTHYROXINE SODIUM 125 MCG TABLET PO SCH (06:28)
[2023-05-23] MEDS: GuanFACINE HCL 1 MG TABLET PO SCH ×2 (08:27→16:51)
[2023-05-23] MEDS: CHOLECALCIFEROL (VIT D3) 1,000 UNITS [25 MCG] TABLET PO SCH (08:28)
[2023-05-23] MEDS: ChlorproMAZINE HCL 100 MG TABLET PO SCH ×3 (08:28→16:51)
[2023-05-23] MEDS: DIVALPROEX SODIUM 500 MG DR TABLET PO SCH ×3 (08:28→16:51)
[2023-05-23] MEDS: AmLODIPine BESYLATE 5 MG TABLET PO SCH (08:28)
[2023-05-23] MEDS: TraZODone HCL 50 MG TABLET PO SCH ×2 (08:28→16:51)
[2023-05-23] MEDS: ChlorproMAZINE HCL 50 MG TABLET PO PRN ×2 (08:28→16:51)
[2023-05-23] MEDS: LORazepam 1 MG TABLET PO PRN ×2 (08:30→16:51)
[2023-05-23] MEDS: HALOPERIDOL 5 MG TABLET PO PRN ×2 (08:30→16:51)
[2023-05-23 20:17] VITALS: RESP 18
[2023-05-24] MEDS: LEVOTHYROXINE SODIUM 125 MCG TABLET PO SCH (06:22)
[2023-05-24] MEDS: ESOMEPRAZOLE MAG TRIHYDRATE 20 MG CAPSULE PO SCH ×2 (06:22→16:57)
[2023-05-24] MEDS: ChlorproMAZINE HCL 100 MG TABLET PO SCH ×3 (08:36→16:57)
[2023-05-24] MEDS: TraZODone HCL 50 MG TABLET PO SCH ×2 (08:37→16:57)
[2023-05-24] MEDS: LORazepam 1 MG TABLET PO PRN ×2 (08:37→16:58)
[2023-05-24] MEDS: GuanFACINE HCL 1 MG TABLET PO SCH ×2 (08:37→16:58)
[2023-05-24] MEDS: AmLODIPine BESYLATE 5 MG TABLET PO SCH (08:37)
[2023-05-24] MEDS: HALOPERIDOL 5 MG TABLET PO PRN ×2 (08:37→16:57)
[2023-05-24] MEDS: CHOLECALCIFEROL (VIT D3) 1,000 UNITS [25 MCG] TABLET PO SCH (08:37)
[2023-05-24] MEDS: DIVALPROEX SODIUM 500 MG DR TABLET PO SCH ×3 (08:37→16:57)
[2023-05-24] MEDS: ChlorproMAZINE HCL 50 MG TABLET PO PRN ×2 (08:37→16:57)
[2023-05-24 09:31] VITALS: BP 138/97; PULSE 81; RESP 17; TEMP 97.2; O2SAT 100
[2023-05-25] MEDS: LEVOTHYROXINE SODIUM 125 MCG TABLET PO SCH (06:23)
[2023-05-25] MEDS: ESOMEPRAZOLE MAG TRIHYDRATE 20 MG CAPSULE PO SCH ×2 (06:23→16:37)
[2023-05-25] MEDS: CHOLECALCIFEROL (VIT D3) 1,000 UNITS [25 MCG] TABLET PO SCH (08:27)
[2023-05-25] MEDS: TraZODone HCL 50 MG TABLET PO SCH ×2 (08:27→16:37)
[2023-05-25] MEDS: DIVALPROEX SODIUM 500 MG DR TABLET PO SCH ×3 (08:27→16:37)
[2023-05-25] MEDS: GuanFACINE HCL 1 MG TABLET PO SCH ×2 (08:27→16:40)
[2023-05-25] MEDS: ChlorproMAZINE HCL 100 MG TABLET PO SCH ×3 (08:27→16:37)
[2023-05-25] MEDS: HALOPERIDOL 5 MG TABLET PO PRN ×2 (08:27→13:34)
[2023-05-25] MEDS: LORazepam 1 MG TABLET PO PRN ×2 (08:27→13:34)
[2023-05-25] MEDS: AmLODIPine BESYLATE 5 MG TABLET PO SCH (08:27)
[2023-05-26 00:10] VITALS: RESP 17; TEMP 97.5; O2SAT 98
[2023-05-26] MEDS: ESOMEPRAZOLE MAG TRIHYDRATE 20 MG CAPSULE PO SCH ×2 (06:05→16:46)
[2023-05-26] MEDS: LEVOTHYROXINE SODIUM 125 MCG TABLET PO SCH (06:05)
[2023-05-26] MEDS: CHOLECALCIFEROL (VIT D3) 1,000 UNITS [25 MCG] TABLET PO SCH (08:18)
[2023-05-26] MEDS: TraZODone HCL 50 MG TABLET PO SCH ×2 (08:18→16:55)
[2023-05-26] MEDS: AmLODIPine BESYLATE 5 MG TABLET PO SCH (08:18)
[2023-05-26] MEDS: DIVALPROEX SODIUM 500 MG DR TABLET PO SCH ×3 (08:18→16:55)
[2023-05-26] MEDS: ChlorproMAZINE HCL 100 MG TABLET PO SCH ×3 (08:18→16:55)
[2023-05-26] MEDS: GuanFACINE HCL 1 MG TABLET PO SCH ×2 (08:21→16:55)
[2023-05-26 08:49] VITALS: BP 138/87; PULSE 106; RESP 20; TEMP 98.4; O2SAT 99
[2023-05-26] MEDS: HALOPERIDOL 5 MG TABLET PO PRN ×2 (12:36→16:55)
[2023-05-26] MEDS: LORazepam 1 MG TABLET PO PRN ×2 (12:36→16:55)
[2023-05-26 23:42] VITALS: RESP 18
[2023-05-27] MEDS: ESOMEPRAZOLE MAG TRIHYDRATE 20 MG CAPSULE PO SCH ×2 (06:34→17:24)
[2023-05-27] MEDS: LEVOTHYROXINE SODIUM 125 MCG TABLET PO SCH (06:34)
[2023-05-27] MEDS: TraZODone HCL 50 MG TABLET PO SCH ×2 (08:23→17:23)
[2023-05-27] MEDS: ChlorproMAZINE HCL 50 MG TABLET PO PRN ×2 (08:23→17:23)
[2023-05-27] MEDS: HALOPERIDOL 5 MG TABLET PO PRN ×2 (08:23→17:23)
[2023-05-27] MEDS: ChlorproMAZINE HCL 100 MG TABLET PO SCH ×3 (08:23→17:27)
[2023-05-27] MEDS: CHOLECALCIFEROL (VIT D3) 1,000 UNITS [25 MCG] TABLET PO SCH (08:23)
[2023-05-27] MEDS: LORazepam 1 MG TABLET PO PRN ×2 (08:23→17:23)
[2023-05-27] MEDS: GuanFACINE HCL 1 MG TABLET PO SCH ×2 (08:23→17:23)
[2023-05-27] MEDS: DIVALPROEX SODIUM 500 MG DR TABLET PO SCH ×3 (08:23→17:23)
[2023-05-27] MEDS: AmLODIPine BESYLATE 5 MG TABLET PO SCH (08:23)
[2023-05-27 10:05] VITALS: BP 134/67; PULSE 76; RESP 18; TEMP 98.4; O2SAT 97
[2023-05-27 22:46] VITALS: RESP 18
[2023-05-28] MEDS: ESOMEPRAZOLE MAG TRIHYDRATE 20 MG CAPSULE PO SCH ×2 (06:38→17:16)
[2023-05-28] MEDS: LEVOTHYROXINE SODIUM 125 MCG TABLET PO SCH (06:38)
[2023-05-28] MEDS: GuanFACINE HCL 1 MG TABLET PO SCH ×2 (08:13→17:17)
[2023-05-28] MEDS: LORazepam 1 MG TABLET PO PRN ×2 (08:13→17:17)
[2023-05-28] MEDS: ChlorproMAZINE HCL 50 MG TABLET PO PRN (08:13)
[2023-05-28] MEDS: CHOLECALCIFEROL (VIT D3) 1,000 UNITS [25 MCG] TABLET PO SCH (08:13)
[2023-05-28] MEDS: TraZODone HCL 50 MG TABLET PO SCH ×2 (08:13→17:17)
[2023-05-28] MEDS: DIVALPROEX SODIUM 500 MG DR TABLET PO SCH ×3 (08:13→17:17)
[2023-05-28] MEDS: AmLODIPine BESYLATE 5 MG TABLET PO SCH (08:13)
[2023-05-28] MEDS: ChlorproMAZINE HCL 100 MG TABLET PO SCH ×3 (08:13→17:17)
[2023-05-28 09:21] VITALS: BP 111/68; PULSE 79; RESP 20; TEMP 98; O2SAT 98
[2023-05-28] MEDS: HALOPERIDOL 5 MG TABLET PO PRN (17:17)
[2023-05-28 20:13] VITALS: BP 118/64; PULSE 80; RESP 18; TEMP 97.8; O2SAT 98
[2023-05-29] MEDS: LEVOTHYROXINE SODIUM 125 MCG TABLET PO SCH (06:30)
[2023-05-29] MEDS: ESOMEPRAZOLE MAG TRIHYDRATE 20 MG CAPSULE PO SCH ×2 (06:33→16:15)
[2023-05-29] MEDS: CHOLECALCIFEROL (VIT D3) 1,000 UNITS [25 MCG] TABLET PO SCH (08:31)
[2023-05-29] MEDS: HALOPERIDOL 5 MG TABLET PO PRN ×2 (08:31→15:15)
[2023-05-29] MEDS: TraZODone HCL 50 MG TABLET PO SCH ×2 (08:31→16:14)
[2023-05-29] MEDS: DIVALPROEX SODIUM 500 MG DR TABLET PO SCH ×3 (08:31→16:14)
[2023-05-29] MEDS: GuanFACINE HCL 1 MG TABLET PO SCH ×2 (08:31→16:14)
[2023-05-29] MEDS: AmLODIPine BESYLATE 5 MG TABLET PO SCH (08:31)
[2023-05-29] MEDS: LORazepam 1 MG TABLET PO PRN ×2 (08:31→15:15)
[2023-05-29] MEDS: ChlorproMAZINE HCL 100 MG TABLET PO SCH ×3 (08:31→16:14)
[2023-05-29 20:17] VITALS: RESP 18
[2023-05-30] MEDS: LEVOTHYROXINE SODIUM 125 MCG TABLET PO SCH (06:32)
[2023-05-30] MEDS: ESOMEPRAZOLE MAG TRIHYDRATE 20 MG CAPSULE PO SCH ×2 (06:32→17:08)
[2023-05-30 08:16] VITALS: BP 116/75; PULSE 100; RESP 18; TEMP 97.8; O2SAT 95
[2023-05-30] MEDS: ChlorproMAZINE HCL 50 MG TABLET PO PRN (08:19)
[2023-05-30] MEDS: AmLODIPine BESYLATE 5 MG TABLET PO SCH (08:19)
[2023-05-30] MEDS: LORazepam 1 MG TABLET PO PRN (08:19)
[2023-05-30] MEDS: TraZODone HCL 50 MG TABLET PO SCH ×2 (08:19→17:07)
[2023-05-30] MEDS: CHOLECALCIFEROL (VIT D3) 1,000 UNITS [25 MCG] TABLET PO SCH (08:19)
[2023-05-30] MEDS: ChlorproMAZINE HCL 100 MG TABLET PO SCH ×3 (08:19→17:07)
[2023-05-30] MEDS: DIVALPROEX SODIUM 500 MG DR TABLET PO SCH ×3 (08:20→17:07)
[2023-05-30] MEDS: GuanFACINE HCL 1 MG TABLET PO SCH ×2 (08:20→17:07)
[2023-05-30 20:13] VITALS: BP 114/68; PULSE 80; RESP 18; TEMP 97.6; O2SAT 97
[2023-05-31] MEDS: ESOMEPRAZOLE MAG TRIHYDRATE 20 MG CAPSULE PO SCH ×2 (06:27→16:39)
[2023-05-31] MEDS: LEVOTHYROXINE SODIUM 125 MCG TABLET PO SCH (06:28)
[2023-05-31] MEDS: TraZODone HCL 50 MG TABLET PO SCH ×2 (08:57→16:39)
[2023-05-31] MEDS: CHOLECALCIFEROL (VIT D3) 1,000 UNITS [25 MCG] TABLET PO SCH (08:57)
[2023-05-31] MEDS: ChlorproMAZINE HCL 100 MG TABLET PO SCH ×3 (08:57→16:39)
[2023-05-31] MEDS: AmLODIPine BESYLATE 5 MG TABLET PO SCH (08:58)
[2023-05-31] MEDS: DIVALPROEX SODIUM 500 MG DR TABLET PO SCH ×3 (08:58→16:39)
[2023-05-31] MEDS: GuanFACINE HCL 1 MG TABLET PO SCH ×2 (09:00→16:39)
[2023-05-31] MEDS: LORazepam 1 MG TABLET PO PRN (15:35)
[2023-06-01 01:22] VITALS: RESP 18
[2023-06-01] MEDS: ESOMEPRAZOLE MAG TRIHYDRATE 20 MG CAPSULE PO SCH ×2 (06:10→16:56)
[2023-06-01] MEDS: LEVOTHYROXINE SODIUM 125 MCG TABLET PO SCH (06:10)
[2023-06-01 08:09] VITALS: RESP 16
[2023-06-01] MEDS: TraZODone HCL 50 MG TABLET PO SCH ×2 (08:14→16:56)
[2023-06-01] MEDS: CHOLECALCIFEROL (VIT D3) 1,000 UNITS [25 MCG] TABLET PO SCH (08:14)
[2023-06-01] MEDS: GuanFACINE HCL 1 MG TABLET PO SCH ×2 (08:14→16:56)
[2023-06-01] MEDS: ChlorproMAZINE HCL 100 MG TABLET PO SCH ×3 (08:14→16:56)
[2023-06-01] MEDS: DIVALPROEX SODIUM 500 MG DR TABLET PO SCH ×3 (08:14→16:56)
[2023-06-01] MEDS: AmLODIPine BESYLATE 5 MG TABLET PO SCH (08:15)
[2023-06-01] MEDS: LORazepam 1 MG TABLET PO PRN (16:56)
[2023-06-02 00:12] VITALS: BP 100/66; PULSE 70; RESP 17; TEMP 98.5; O2SAT 96
[2023-06-02] MEDS: ESOMEPRAZOLE MAG TRIHYDRATE 20 MG CAPSULE PO SCH ×2 (06:34→16:48)
[2023-06-02] MEDS: LEVOTHYROXINE SODIUM 125 MCG TABLET PO SCH (06:35)
[2023-06-02] MEDS: LORazepam 1 MG TABLET PO PRN ×2 (08:36→16:49)
[2023-06-02] MEDS: TraZODone HCL 50 MG TABLET PO SCH ×2 (08:36→16:49)
[2023-06-02] MEDS: AmLODIPine BESYLATE 5 MG TABLET PO SCH (08:36)
[2023-06-02] MEDS: GuanFACINE HCL 1 MG TABLET PO SCH ×2 (08:36→16:50)
[2023-06-02] MEDS: HALOPERIDOL 5 MG TABLET PO PRN (08:36)
[2023-06-02] MEDS: DIVALPROEX SODIUM 500 MG DR TABLET PO SCH ×3 (08:36→16:50)
[2023-06-02] MEDS: ChlorproMAZINE HCL 100 MG TABLET PO SCH ×3 (08:36→16:49)
[2023-06-02] MEDS: CHOLECALCIFEROL (VIT D3) 1,000 UNITS [25 MCG] TABLET PO SCH (08:36)
[2023-06-02 09:26] VITALS: BP 100/61; PULSE 100; RESP 18; TEMP 97.7; O2SAT 96
[2023-06-02 20:08] VITALS: RESP 18
[2023-06-03] MEDS: ESOMEPRAZOLE MAG TRIHYDRATE 20 MG CAPSULE PO SCH ×2 (06:17→16:10)
[2023-06-03] MEDS: LEVOTHYROXINE SODIUM 125 MCG TABLET PO SCH (06:17)
[2023-06-03 08:17] VITALS: BP 123/84; PULSE 72; RESP 18; TEMP 97.6; O2SAT 100
[2023-06-03] MEDS: AmLODIPine BESYLATE 5 MG TABLET PO SCH (08:23)
[2023-06-03] MEDS: ChlorproMAZINE HCL 50 MG TABLET PO PRN (08:23)
[2023-06-03] MEDS: DIVALPROEX SODIUM 500 MG DR TABLET PO SCH ×3 (08:23→16:07)
[2023-06-03] MEDS: ChlorproMAZINE HCL 100 MG TABLET PO SCH ×3 (08:23→16:07)
[2023-06-03] MEDS: TraZODone HCL 50 MG TABLET PO SCH ×2 (08:23→16:07)
[2023-06-03] MEDS: LORazepam 1 MG TABLET PO PRN (08:23)
[2023-06-03] MEDS: CHOLECALCIFEROL (VIT D3) 1,000 UNITS [25 MCG] TABLET PO SCH (08:23)
[2023-06-03] MEDS: GuanFACINE HCL 1 MG TABLET PO SCH ×2 (08:23→16:07)
[2023-06-03 20:35] VITALS: BP 115/79; PULSE 75; RESP 18; TEMP 98; O2SAT 99
[2023-06-04] MEDS: ESOMEPRAZOLE MAG TRIHYDRATE 20 MG CAPSULE PO SCH ×2 (06:37→16:15)
[2023-06-04] MEDS: LEVOTHYROXINE SODIUM 125 MCG TABLET PO SCH (06:37)
[2023-06-04] MEDS: TraZODone HCL 50 MG TABLET PO SCH ×2 (08:08→16:15)
[2023-06-04] MEDS: ChlorproMAZINE HCL 50 MG TABLET PO PRN ×2 (08:08→16:15)
[2023-06-04] MEDS: GuanFACINE HCL 1 MG TABLET PO SCH ×2 (08:08→16:19)
[2023-06-04] MEDS: LORazepam 1 MG TABLET PO PRN ×2 (08:08→16:15)
[2023-06-04] MEDS: AmLODIPine BESYLATE 5 MG TABLET PO SCH (08:08)
[2023-06-04] MEDS: DIVALPROEX SODIUM 500 MG DR TABLET PO SCH ×3 (08:08→16:15)
[2023-06-04] MEDS: ChlorproMAZINE HCL 100 MG TABLET PO SCH ×3 (08:08→16:15)
[2023-06-04] MEDS: CHOLECALCIFEROL (VIT D3) 1,000 UNITS [25 MCG] TABLET PO SCH (08:08)
[2023-06-04 14:21] VITALS: BP 110/80; PULSE 80; RESP 17; TEMP 97.6; O2SAT 100
[2023-06-05] MEDS: LEVOTHYROXINE SODIUM 125 MCG TABLET PO SCH (06:34)
[2023-06-05] MEDS: ESOMEPRAZOLE MAG TRIHYDRATE 20 MG CAPSULE PO SCH ×2 (06:34→16:31)
[2023-06-05 08:18] VITALS: BP 100/75; PULSE 98; RESP 17; TEMP 97.5; O2SAT 96
[2023-06-05] MEDS: DIVALPROEX SODIUM 500 MG DR TABLET PO SCH ×3 (09:29→16:30)
[2023-06-05] MEDS: CHOLECALCIFEROL (VIT D3) 1,000 UNITS [25 MCG] TABLET PO SCH (09:29)
[2023-06-05] MEDS: TraZODone HCL 50 MG TABLET PO SCH ×2 (09:29→16:31)
[2023-06-05] MEDS: AmLODIPine BESYLATE 5 MG TABLET PO SCH (09:29)
[2023-06-05] MEDS: ChlorproMAZINE HCL 100 MG TABLET PO SCH ×3 (09:29→16:31)
[2023-06-05] MEDS: GuanFACINE HCL 1 MG TABLET PO SCH ×2 (09:30→16:30)
[2023-06-05 20:06] VITALS: RESP 18
[2023-06-06] MEDS: LEVOTHYROXINE SODIUM 125 MCG TABLET PO SCH (06:38)
[2023-06-06] MEDS: ESOMEPRAZOLE MAG TRIHYDRATE 20 MG CAPSULE PO SCH ×2 (06:38→17:47)
[2023-06-06 08:24] VITALS: BP 124/67; PULSE 100; RESP 17; TEMP 98; O2SAT 99
[2023-06-06 08:39] LABS: APPEARANCE,URINE CLEAR (CLEAR); BILIRUBIN,URINE NEGATIVE (NEGATIVE); COLOR,URINE YELLOW (YELLOW); GLUCOSE, URINE (UA) NEGATIVE (NEGATIVE); KETONES,URINE TRACE mg/dL (NEGATIVE); LEUKOCYTE ESTERASE ,URINE NEGATIVE (NEGATIVE); NITRATE,URINE NEGATIVE (NEGATIVE); OCCULT BLOOD,URINE NEGATIVE (NEGATIVE); PH,URINE 6.5 (5.0-8.0); PH,URINE DRUG SCREEN 6.5 (5.0-8.0); PROTEIN,URINE 30-70 mg/dL (NEGATIVE)
[2023-06-06 08:42] LABS: ALCOHOL, URINE DRUG SCREEN NEGATIVE (NEGATIVE); AMPHET/METH SCREEN,URINE NEGATIVE (NEGATIVE); BARBITURATE SCREEN, URINE NEGATIVE (NEGATIVE); BENZODIAZEPINES SCREEN,URINE NEGATIVE (NEGATIVE); CANNABINOID SCREEN,URINE NEGATIVE (NEGATIVE); COCAINE SCREEN,URINE NEGATIVE (NEGATIVE); METHADONE SCREEN, URINE NEGATIVE (NEGATIVE); OPIATE SCREEN,URINE NEGATIVE (NEGATIVE); PHENCYCLIDINE SCREEN,URINE NEGATIVE (NEGATIVE)
[2023-06-06] MEDS: GuanFACINE HCL 1 MG TABLET PO SCH ×2 (08:59→17:48)
[2023-06-06] MEDS: TraZODone HCL 50 MG TABLET PO SCH ×2 (09:00→17:54)
[2023-06-06] MEDS: AmLODIPine BESYLATE 5 MG TABLET PO SCH (09:00)
[2023-06-06] MEDS: CHOLECALCIFEROL (VIT D3) 1,000 UNITS [25 MCG] TABLET PO SCH (09:00)
[2023-06-06] MEDS: DIVALPROEX SODIUM 500 MG DR TABLET PO SCH ×3 (09:00→17:46)
[2023-06-06] MEDS: ChlorproMAZINE HCL 100 MG TABLET PO SCH ×3 (09:00→17:46)
[2023-06-06 23:55] VITALS: BP 112/63; PULSE 96; RESP 18; TEMP 97.8
[2023-06-07] MEDS: LEVOTHYROXINE SODIUM 125 MCG TABLET PO SCH (06:42)
[2023-06-07] MEDS: ESOMEPRAZOLE MAG TRIHYDRATE 20 MG CAPSULE PO SCH ×2 (06:42→17:26)
[2023-06-07] MEDS: HALOPERIDOL 5 MG TABLET PO PRN ×2 (07:45→13:18)
[2023-06-07] MEDS: LORazepam 1 MG TABLET PO PRN ×3 (07:45→17:27)
[2023-06-07] MEDS: CHOLECALCIFEROL (VIT D3) 1,000 UNITS [25 MCG] TABLET PO SCH (08:00)
[2023-06-07] MEDS: GuanFACINE HCL 1 MG TABLET PO SCH ×2 (08:00→17:26)
[2023-06-07] MEDS: TraZODone HCL 50 MG TABLET PO SCH ×2 (08:00→17:26)
[2023-06-07] MEDS: DIVALPROEX SODIUM 500 MG DR TABLET PO SCH ×3 (08:00→17:26)
[2023-06-07] MEDS: AmLODIPine BESYLATE 5 MG TABLET PO SCH (08:01)
[2023-06-07] MEDS: ChlorproMAZINE HCL 100 MG TABLET PO SCH ×3 (08:01→17:26)
[2023-06-07 08:31] VITALS: BP 110/67; PULSE 94; RESP 17; TEMP 97.5; O2SAT 90
[2023-06-07 21:42] VITALS: BP 107/56; PULSE 74; RESP 16; TEMP 96.6; O2SAT 97
[2023-06-08] MEDS: LEVOTHYROXINE SODIUM 125 MCG TABLET PO SCH (06:25)
[2023-06-08] MEDS: ESOMEPRAZOLE MAG TRIHYDRATE 20 MG CAPSULE PO SCH ×2 (06:25→16:38)
[2023-06-08 08:14] VITALS: BP 106/69; PULSE 98; RESP 18; TEMP 98.3; O2SAT 98
[2023-06-08] MEDS: DIVALPROEX SODIUM 500 MG DR TABLET PO SCH ×3 (08:20→16:38)
[2023-06-08] MEDS: ChlorproMAZINE HCL 100 MG TABLET PO SCH ×3 (08:20→16:38)
[2023-06-08] MEDS: CHOLECALCIFEROL (VIT D3) 1,000 UNITS [25 MCG] TABLET PO SCH (08:20)
[2023-06-08] MEDS: TraZODone HCL 50 MG TABLET PO SCH ×2 (08:20→16:38)
[2023-06-08] MEDS: LORazepam 1 MG TABLET PO PRN ×3 (08:20→16:38)
[2023-06-08] MEDS: AmLODIPine BESYLATE 5 MG TABLET PO SCH (08:20)
[2023-06-08] MEDS: GuanFACINE HCL 1 MG TABLET PO SCH ×2 (08:20→16:38)
[2023-06-08] MEDS: HALOPERIDOL 5 MG TABLET PO PRN (12:19)
[2023-06-08 22:33] VITALS: BP 97/62; PULSE 68; RESP 16; TEMP 97.3; O2SAT 98
[2023-06-09] MEDS: LEVOTHYROXINE SODIUM 125 MCG TABLET PO SCH (06:18)
[2023-06-09] MEDS: ESOMEPRAZOLE MAG TRIHYDRATE 20 MG CAPSULE PO SCH ×2 (06:18→17:03)
[2023-06-09] MEDS: HALOPERIDOL 5 MG TABLET PO PRN ×2 (08:13→18:00)
[2023-06-09] MEDS: CHOLECALCIFEROL (VIT D3) 1,000 UNITS [25 MCG] TABLET PO SCH (08:13)
[2023-06-09] MEDS: DIVALPROEX SODIUM 500 MG DR TABLET PO SCH ×3 (08:13→17:03)
[2023-06-09] MEDS: GuanFACINE HCL 1 MG TABLET PO SCH ×2 (08:13→17:03)
[2023-06-09] MEDS: TraZODone HCL 50 MG TABLET PO SCH ×2 (08:13→17:03)
[2023-06-09] MEDS: LORazepam 1 MG TABLET PO PRN ×2 (08:13→18:00)
[2023-06-09] MEDS: ChlorproMAZINE HCL 100 MG TABLET PO SCH ×3 (08:13→17:03)
[2023-06-09] MEDS: AmLODIPine BESYLATE 5 MG TABLET PO SCH (08:13)
[2023-06-09 08:41] VITALS: BP 100/67; PULSE 60; RESP 16; TEMP 96.9; O2SAT 96
[2023-06-09 21:15] VITALS: BP 91/53; PULSE 80; RESP 16; TEMP 96.6; O2SAT 98
[2023-06-10] MEDS: ESOMEPRAZOLE MAG TRIHYDRATE 20 MG CAPSULE PO SCH ×2 (06:31→17:00)
[2023-06-10] MEDS: LEVOTHYROXINE SODIUM 125 MCG TABLET PO SCH (06:31)
[2023-06-10] MEDS: ChlorproMAZINE HCL 100 MG TABLET PO SCH ×3 (08:26→17:00)
[2023-06-10] MEDS: AmLODIPine BESYLATE 5 MG TABLET PO SCH (08:26)
[2023-06-10] MEDS: GuanFACINE HCL 1 MG TABLET PO SCH ×2 (08:26→17:00)
[2023-06-10] MEDS: CHOLECALCIFEROL (VIT D3) 1,000 UNITS [25 MCG] TABLET PO SCH (08:26)
[2023-06-10] MEDS: TraZODone HCL 50 MG TABLET PO SCH ×2 (08:26→17:00)
[2023-06-10] MEDS: ChlorproMAZINE HCL 50 MG TABLET PO PRN (08:26)
[2023-06-10] MEDS: DIVALPROEX SODIUM 500 MG DR TABLET PO SCH ×3 (08:26→17:00)
[2023-06-10 12:47] VITALS: BP 100/60; PULSE 97; RESP 17; TEMP 97.4; O2SAT 97
[2023-06-10] MEDS: LORazepam 1 MG TABLET PO PRN (17:00)
[2023-06-10 20:18] VITALS: BP 106/62; PULSE 90; RESP 18; TEMP 97.6; O2SAT 98
[2023-06-11] MEDS: LEVOTHYROXINE SODIUM 125 MCG TABLET PO SCH (06:31)
[2023-06-11] MEDS: ESOMEPRAZOLE MAG TRIHYDRATE 20 MG CAPSULE PO SCH ×2 (06:31→16:31)
[2023-06-11] MEDS: LORazepam 1 MG TABLET PO PRN ×3 (07:50→16:31)
[2023-06-11] MEDS: HALOPERIDOL 5 MG TABLET PO PRN (07:50)
[2023-06-11] MEDS: GuanFACINE HCL 1 MG TABLET PO SCH ×2 (08:01→16:31)
[2023-06-11] MEDS: AmLODIPine BESYLATE 5 MG TABLET PO SCH (08:01)
[2023-06-11] MEDS: TraZODone HCL 50 MG TABLET PO SCH ×2 (08:01→16:33)
[2023-06-11] MEDS: ChlorproMAZINE HCL 100 MG TABLET PO SCH ×3 (08:01→16:31)
[2023-06-11] MEDS: DIVALPROEX SODIUM 500 MG DR TABLET PO SCH ×3 (08:01→16:31)
[2023-06-11] MEDS: CHOLECALCIFEROL (VIT D3) 1,000 UNITS [25 MCG] TABLET PO SCH (08:01)
[2023-06-11 08:17] VITALS: BP 118/64; PULSE 98; RESP 18; TEMP 97.7; O2SAT 99
[2023-06-11 20:18] VITALS: BP 110/64; PULSE 102; RESP 18; TEMP 97.6; O2SAT 97
[2023-06-12] MEDS: ESOMEPRAZOLE MAG TRIHYDRATE 20 MG CAPSULE PO SCH ×2 (06:35→16:30)
[2023-06-12] MEDS: LEVOTHYROXINE SODIUM 125 MCG TABLET PO SCH (06:35)
[2023-06-12] MEDS: ChlorproMAZINE HCL 100 MG TABLET PO SCH ×3 (08:13→16:54)
[2023-06-12] MEDS: TraZODone HCL 50 MG TABLET PO SCH ×2 (08:13→16:54)
[2023-06-12] MEDS: ChlorproMAZINE HCL 50 MG TABLET PO PRN (08:13)
[2023-06-12] MEDS: DIVALPROEX SODIUM 500 MG DR TABLET PO SCH ×3 (08:13→16:54)
[2023-06-12] MEDS: CHOLECALCIFEROL (VIT D3) 1,000 UNITS [25 MCG] TABLET PO SCH (08:13)
[2023-06-12] MEDS: GuanFACINE HCL 1 MG TABLET PO SCH ×2 (08:13→16:54)
[2023-06-12] MEDS: AmLODIPine BESYLATE 5 MG TABLET PO SCH (08:13)
[2023-06-12] MEDS: LORazepam 1 MG TABLET PO PRN (08:13)
[2023-06-12 08:17] VITALS: BP 119/66; PULSE 100; RESP 17; TEMP 96.9; O2SAT 96
[2023-06-12 20:26] VITALS: BP 116/64; PULSE 94; RESP 18; TEMP 97.7; O2SAT 98
[2023-06-13] MEDS: ESOMEPRAZOLE MAG TRIHYDRATE 20 MG CAPSULE PO SCH ×2 (06:15→16:35)
[2023-06-13] MEDS: LEVOTHYROXINE SODIUM 125 MCG TABLET PO SCH (06:15)
[2023-06-13] MEDS: CHOLECALCIFEROL (VIT D3) 1,000 UNITS [25 MCG] TABLET PO SCH (08:03)
[2023-06-13] MEDS: ChlorproMAZINE HCL 100 MG TABLET PO SCH ×3 (08:03→16:35)
[2023-06-13] MEDS: DIVALPROEX SODIUM 500 MG DR TABLET PO SCH ×3 (08:03→16:35)
[2023-06-13] MEDS: AmLODIPine BESYLATE 5 MG TABLET PO SCH (08:03)
[2023-06-13] MEDS: TraZODone HCL 50 MG TABLET PO SCH ×2 (08:03→16:35)
[2023-06-13] MEDS: HALOPERIDOL 5 MG TABLET PO PRN (08:04)
[2023-06-13] MEDS: GuanFACINE HCL 1 MG TABLET PO SCH ×2 (08:04→16:36)
[2023-06-13] MEDS: LORazepam 1 MG TABLET PO PRN ×2 (08:04→12:24)
[2023-06-13 13:40] VITALS: BP 121/74; PULSE 103; RESP 18; TEMP 97.5; O2SAT 100
[2023-06-13 20:12] VITALS: BP 110/62; PULSE 84; RESP 17; TEMP 97.8; O2SAT 97
[2023-06-14] MEDS: LEVOTHYROXINE SODIUM 125 MCG TABLET PO SCH (06:28)
[2023-06-14] MEDS: ESOMEPRAZOLE MAG TRIHYDRATE 20 MG CAPSULE PO SCH ×2 (06:28→17:31)
[2023-06-14 09:18] VITALS: BP 108/64; PULSE 100; RESP 18; TEMP 96; O2SAT 98
[2023-06-14] MEDS: GuanFACINE HCL 1 MG TABLET PO SCH ×2 (09:27→17:31)
[2023-06-14] MEDS: DIVALPROEX SODIUM 500 MG DR TABLET PO SCH ×3 (09:28→17:30)
[2023-06-14] MEDS: ChlorproMAZINE HCL 100 MG TABLET PO SCH ×3 (09:28→17:30)
[2023-06-14] MEDS: CHOLECALCIFEROL (VIT D3) 1,000 UNITS [25 MCG] TABLET PO SCH (09:28)
[2023-06-14] MEDS: TraZODone HCL 50 MG TABLET PO SCH ×2 (09:28→17:30)
[2023-06-14] MEDS: AmLODIPine BESYLATE 5 MG TABLET PO SCH (09:28)
[2023-06-14 21:55] VITALS: BP 111/68; PULSE 87; RESP 18; TEMP 98.1; O2SAT 99
[2023-06-15] MEDS: LEVOTHYROXINE SODIUM 125 MCG TABLET PO SCH (06:29)
[2023-06-15] MEDS: ESOMEPRAZOLE MAG TRIHYDRATE 20 MG CAPSULE PO SCH ×2 (06:29→16:36)
[2023-06-15] MEDS: CHOLECALCIFEROL (VIT D3) 1,000 UNITS [25 MCG] TABLET PO SCH (08:47)
[2023-06-15] MEDS: TraZODone HCL 50 MG TABLET PO SCH ×2 (08:47→16:36)
[2023-06-15] MEDS: AmLODIPine BESYLATE 5 MG TABLET PO SCH (08:47)
[2023-06-15] MEDS: DIVALPROEX SODIUM 500 MG DR TABLET PO SCH ×3 (08:47→16:36)
[2023-06-15] MEDS: ChlorproMAZINE HCL 100 MG TABLET PO SCH ×3 (08:47→16:36)
[2023-06-15] MEDS: LORazepam 1 MG TABLET PO PRN ×2 (08:47→13:14)
[2023-06-15] MEDS: HALOPERIDOL 5 MG TABLET PO PRN ×2 (08:47→13:14)
[2023-06-15] MEDS: GuanFACINE HCL 1 MG TABLET PO SCH ×2 (08:55→16:36)
[2023-06-15 10:13] VITALS: BP 128/74; PULSE 111; RESP 18; TEMP 97.1; O2SAT 98
[2023-06-15 20:15] VITALS: RESP 16; TEMP 98.1
[2023-06-16] MEDS: ESOMEPRAZOLE MAG TRIHYDRATE 20 MG CAPSULE PO SCH ×2 (06:21→16:49)
[2023-06-16] MEDS: LEVOTHYROXINE SODIUM 125 MCG TABLET PO SCH (06:21)
[2023-06-16] MEDS: DIVALPROEX SODIUM 500 MG DR TABLET PO SCH ×3 (08:05→16:49)
[2023-06-16] MEDS: ChlorproMAZINE HCL 100 MG TABLET PO SCH ×3 (08:05→16:49)
[2023-06-16] MEDS: GuanFACINE HCL 1 MG TABLET PO SCH ×2 (08:06→16:49)
[2023-06-16] MEDS: CHOLECALCIFEROL (VIT D3) 1,000 UNITS [25 MCG] TABLET PO SCH (08:06)
[2023-06-16] MEDS: AmLODIPine BESYLATE 5 MG TABLET PO SCH (08:06)
[2023-06-16] MEDS: TraZODone HCL 50 MG TABLET PO SCH ×2 (08:06→16:49)
[2023-06-16 12:26] VITALS: BP 103/72; PULSE 101; RESP 16; TEMP 97.3; O2SAT 100
[2023-06-16] MEDS ORDERED: DIVA-112 PO (12:46)
[2023-06-16] MEDS ORDERED: CHLO100T42 PO (12:46)
[2023-06-16] MEDS ORDERED: TRAZ-252 PO (12:46)
[2023-06-16] MEDS: LORazepam 1 MG TABLET PO PRN (16:49)
[2023-06-16 20:43] VITALS: RESP 18; TEMP 97.8
[2023-06-17] MEDS: LEVOTHYROXINE SODIUM 125 MCG TABLET PO SCH (06:36)
[2023-06-17] MEDS: ESOMEPRAZOLE MAG TRIHYDRATE 20 MG CAPSULE PO SCH (06:36)
[2023-06-17] MEDS: ChlorproMAZINE HCL 100 MG TABLET PO SCH (09:12)
[2023-06-17] MEDS: GuanFACINE HCL 1 MG TABLET PO SCH (09:12)
[2023-06-17] MEDS: CHOLECALCIFEROL (VIT D3) 1,000 UNITS [25 MCG] TABLET PO SCH (09:12)
[2023-06-17] MEDS: TraZODone HCL 50 MG TABLET PO SCH (09:12)
[2023-06-17] MEDS: DIVALPROEX SODIUM 500 MG DR TABLET PO SCH (09:12)
[2023-06-17] MEDS: AmLODIPine BESYLATE 5 MG TABLET PO SCH (09:12)
== END 2023-06-17 10:14 | disposition home or self-care (01) | DRG 750 ==
LOC: EMS 18:04 → B3A 05-08 00:12
PROVIDERS: ADMIT Psychiatry & Neurology Psychiatry; ATTEND Psychiatry & Neurology Psychiatry
DX: F25.9 Schizoaffective disorder, unspecified (principal); F79 Unspecified intellectual disabilities; E03.9 Hypothyroidism, unspecified; E78.00 Pure hypercholesterolemia, unspecified; F84.0 Autistic disorder; I10 Essential (primary) hypertension; F31.9 Bipolar disorder, unspecified; F41.9 Anxiety disorder, unspecified; G47.00 Insomnia, unspecified; K21.9 Gastro-esophageal reflux disease without esophagitis; Z20.822 Contact with and (suspected) exposure to COVID-19
CPT/HCPCS: 80053; 80164; 80307; 81003; 85025; G0480; J1200; J1630; J2060; J3230